=== PATIENT | male | born 1955 | race Caucasian/White ===

== ENCOUNTER 2020-08-03 12:48 | Inpatient (IN) | payer MEDICARE ==
[~2020-08-03] VITALS: Ht 180.3 cm; Wt 97.7 kg
[2020-08-03] MEDS ORDERED: ASPIRIN 81 MG TABLET CHEW PO ONE (13:30)
[2020-08-03] MEDS ORDERED: PLEASE ENTER ALLERGIES MC SCH (13:30)
[2020-08-03] MEDS ORDERED: SODIUM CHLORIDE FLUSH 10ML SYR IVF ONE (13:30)
[2020-08-03] MEDS ORDERED: NITROGLYCERIN SINGLE TAB 0.4 MG SL PRN (13:30)
[2020-08-03] MEDS ORDERED: NITROGLYCERIN SINGLE TAB 0.4 MG SL ONE (13:42)
[2020-08-03] MEDS ORDERED: ASPIRIN 81 MG TABLET CHEW ONE (13:43)
[2020-08-03 13:49] LABS: BASOPHILS % (AUTO) 1 % (0-1); EOSINOPHILS % (AUTO) 3 % (1-7); LYMPHOCYTES % (AUTO) 23 % (22-44); MD NO; MEAN CORPUSCULAR HEMOGLOBIN 30.8 pg (27.5-34.5); MEAN CORPUSCULAR HGB CONC 33.7 g/dL (33.2-36.2); MEAN PLATELET VOLUME 7.4 fL (7.4-10.4); MONOCYTES % (AUTO) 7 % (2-9); NEUTROPHILS % (AUTO) 65 % (42-75); PLATELET COUNT 260 x10^3/uL (130-400); RED BLOOD COUNT 4.96 x10^6/uL (4.38-5.82); RED CELL DISTRIBUTION WIDTH 13.8 % (9.4-14.8)
[2020-08-03 13:58] LABS: ALANINE AMINOTRANSFERASE 27 U/L (12-78); ANION GAP 6 mmol/L (5-15); CALCIUM 8.9 mg/dL (8.5-10.1); CHLORIDE 107 mmol/L (98-107); CREATININE 1.05 mg/dL (0.7-1.3)
[2020-08-03 14:02] LABS: ALKALINE PHOSPHATASE 82 U/L (45-117); BILIRUBIN,TOTAL 0.5 mg/dL (0.2-1.0); TOTAL PROTEIN 7.5 g/dL (6.4-8.2); TROPONIN I < 0.015 ng/mL (0.000-0.045)
[2020-08-03] MEDS ORDERED: LAMO200T49 PO (14:03)
[2020-08-03] MEDS ORDERED: TAMS-11 PO (14:03)
[2020-08-03] MEDS ORDERED: ATEN25TA PO (14:03)
[2020-08-03] MEDS ORDERED: BENZONATATE 100 MG CAPSULE ONE (14:50)
[2020-08-03] MEDS ORDERED: ONDANSETRON ODT 4 MG ONE ×2 (14:50→14:53)
--- NOTE | 2020-08-03 14:55 | NUR ---
DR. BANERJEE NOTIFIED THAT PATIENT IS COMPLAINING OF A COUGH AND NAUSEA THAT HE ATTRIBUTES TO HIS COUGH. EMBER HALL AND BOLA STROUD GIVEN.
[2020-08-03] MEDS ORDERED: ONDANSETRON ODT 4 MG PO ONE (15:00)
[2020-08-03] MEDS ORDERED: BENZONATATE 100 MG CAPSULE PO ONE (15:00)
--- NOTE | 2020-08-03 15:35 | NUR ---
REPORT GIVEN TO GEMMA. PT UPDATED.
[2020-08-03 16:02] VITALS: BP 157/85
[2020-08-03] MEDS ORDERED: GUAIFENESIN/COD200MG-20MG/10ML LIQUID PO PRN (18:00)
[2020-08-03] MEDS ORDERED: ONDANSETRON 2MG/ML, 2ML IVPush PRN (18:00)
[2020-08-03] MEDS ORDERED: ONDANSETRON ODT 4 MG PO PRN (18:00)
[2020-08-03] MEDS ORDERED: hydrALAzine 20 MG/ML, 1ML IVPush PRN (18:00)
[2020-08-03] MEDS ORDERED: HYDROcodone/APAP 5/325 TABLET PO PRN (18:00)
[2020-08-03] MEDS ORDERED: ACETAMINOPHEN 325 MG TABLET PO PRN (18:00)
[2020-08-03] MEDS ORDERED: GUAIFENESIN/CODEINE MC SCH (18:30)
[2020-08-03] MEDS ORDERED: GUAIFENESIN/DM 100-10MG, 5ML UDC PO PRN (18:30)
[2020-08-03] MEDS ORDERED: POTASSIUM CHLORIDE 20 MEQ TAB.ER.PRT PO ONE (19:00)
[2020-08-03 19:21] VITALS: BP 150/83
[2020-08-03] MEDS: methylPREDNISolone SOD SUCC 40 MG/ML IV SCH (19:49)
[2020-08-03] MEDS: CEFTRIAXONE PMX 1GM/50ML 50 ML IV SCH (19:49)
[2020-08-03] MEDS: ENOXAPARIN 40 MG/0.4 ML SQ SCH (19:49)
[2020-08-03] MEDS: LACTATED RINGERS 1,000 ML IV SCH (19:50)
[2020-08-03 20:05] LABS: TROPONIN I < 0.015 ng/mL (0.000-0.045)
[2020-08-03 20:13] LABS: MICROSCOPIC NOT IND
[2020-08-03] MEDS: DOXYCYCLINE 100MG TABLET PO SCH (20:41)
[2020-08-03] MEDS: INSULIN LISPRO 100 UNITS/ML, PEN SQ-INSULIN SCH (20:50)
[2020-08-03] MEDS ORDERED: MELATONIN 5 MG TABLET PO PRN (21:00)
[2020-08-04 00:39] VITALS: BP 142/82
[2020-08-04 01:58] LABS: BASOPHILS % (AUTO) 0 % (0-1); EOSINOPHILS % (AUTO) 0 % (1-7); LYMPHOCYTES % (AUTO) 9 % (22-44); MEAN CORPUSCULAR HEMOGLOBIN 30.9 pg (27.5-34.5); MEAN PLATELET VOLUME 7.4 fL (7.4-10.4); MONOCYTES % (AUTO) 2 % (2-9); NEUTROPHILS % (AUTO) 89 % (42-75); PLATELET COUNT 227 x10^3/uL (130-400); RED BLOOD COUNT 4.62 x10^6/uL (4.38-5.82); RED CELL DISTRIBUTION WIDTH 13.6 % (9.4-14.8)
[2020-08-04 02:01] LABS: MD NO
[2020-08-04 02:12] LABS: ALANINE AMINOTRANSFERASE 24 U/L (12-78); ALBUMIN 3.5 g/dL (3.4-5.0); ANION GAP 5 mmol/L (5-15); CALCIUM 8.7 mg/dL (8.5-10.1); CHLORIDE 110 mmol/L (98-107); CHOLESTEROL, TOTAL 191 mg/dL (140-239)
[2020-08-04] MEDS: methylPREDNISolone SOD SUCC 40 MG/ML IV SCH ×3 (02:17→17:25)
[2020-08-04 02:21] LABS: ALKALINE PHOSPHATASE 67 U/L (45-117); BILIRUBIN,TOTAL 0.2 mg/dL (0.2-1.0); CHOL/HDL RATIO 3.8; HDL CHOL % 26 % (26-37); HDL CHOLESTEROL (DIRECT) 50 mg/dL (40-60); LDL CHOLESTEROL,CALCULATED 127 mg/dL (54-169); LDL/HDL RATIO 2.5 (0.5-3.0); TOTAL PROTEIN 6.6 g/dL (6.4-8.2); TRIGLYCERIDES 68 mg/dL (50-200); VLDL CHOLESTEROL 14 mg/dL (0-25)
[2020-08-04 02:42] LABS: TROPONIN I < 0.015 ng/mL (0.000-0.045)
[2020-08-04] MEDS ORDERED: PANTOPRAZOLE 40MG TABLET PO SCH (06:00)
[2020-08-04] MEDS: DOXYCYCLINE 100MG TABLET PO SCH ×2 (07:33→20:07)
[2020-08-04] MEDS: INSULIN LISPRO 100 UNITS/ML, PEN SQ-INSULIN SCH ×3 (07:34→16:00)
[2020-08-04 07:39] VITALS: BP 151/92
[2020-08-04] MEDS: LACTATED RINGERS 1,000 ML IV SCH (08:46)
[2020-08-04] MEDS ORDERED: LAMOTRIGINE 200 MG TABLET PO SCH (09:00)
[2020-08-04] MEDS ORDERED: ATENOLOL 25 MG TABLET PO SCH (09:00)
[2020-08-04] MEDS ORDERED: TAMSULOSIN 0.4 MG CAP.ER.24H PO SCH (09:00)
[2020-08-04 14:06] VITALS: BP 147/86
[2020-08-04] MEDS ORDERED: PRED10TA PO (15:51)
[2020-08-04] MEDS ORDERED: GUAI5SYR PO (15:51)
[2020-08-04] MEDS ORDERED: PANT40TA6 PO (15:51)
[2020-08-04] MEDS ORDERED: AMOX1TAB64 PO (15:51)
[2020-08-04] MEDS: ENOXAPARIN 40 MG/0.4 ML SQ SCH (17:24)
[2020-08-04] MEDS: CEFTRIAXONE PMX 1GM/50ML 50 ML IV SCH (18:15)
== END 2020-08-04 20:45 | disposition home or self-care (01) | DRG 202 ==
LOC: ED 14:27 → ORIP 15:15 → 5SO 15:41
PROVIDERS: ADMIT Internal Medicine; ATTEND Internal Medicine
DX: J45.909 Unspecified asthma, uncomplicated (principal); J98.11 Atelectasis; I10 Essential (primary) hypertension; N40.0 Benign prostatic hyperplasia without lower urinary tract symptoms; Z82.41 Family history of sudden cardiac death; Z82.49 Family history of ischemic heart disease and other diseases of the circulatory system; R07.89 Other chest pain
CPT/HCPCS: 36415; 71045; 71046; 80053; 80061; 81003; 82962; 83735; 84443; 84484; 85025; 85379; 93005; 99285; G0378; J0696; J1650; Q0162; J1815; J2920; J7120